=== PATIENT | female | born 1985 | race Caucasian/White ===

== ENCOUNTER 2017-07-23 03:01 | Inpatient (IN) | payer BC ==
[2017-07-23 03:52] LABS: APPEARANCE,URINE SLIGHTLY-CLOUDY; BILIRUBIN,URINE NEGATIVE (NEGATIVE); COLOR,URINE YELLOW; GLUCOSE, URINE NEGATIVE (NEGATIVE); KETONES,URINE NEGATIVE (NEGATIVE); LEUKOCYTE ESTERASE,URINE SMALL (NEGATIVE); NITRITE,URINE NEGATIVE (NEGATIVE); PROTEIN,URINE NEGATIVE (NEGATIVE); UROBILINOGEN,URINE NEGATIVE mg/dL (<2.0)
[2017-07-23 04:32] LABS: URINE AMPHETAMINES SCREEN NEGATIVE; URINE BARBITURATES SCREEN NEGATIVE; URINE BENZODIAZEPINES SCREEN NEGATIVE; URINE COCAINE SCREEN NEGATIVE; URINE MARIJUANA (THC) SCREEN NEGATIVE; URINE PHENCYCLIDINE SCREEN NEGATIVE
[2017-07-23] MEDS ORDERED: RINGERS SOLUTION,LACTATED 1,000 ML IV ONE (05:48)
[2017-07-23 06:20] LABS: ABSOLUTE BASOPHILS # (AUTO) 0.1 10^3/uL (0.0-0.2); ABSOLUTE EOSINOPHILS # (AUTO) 0.1 10^3/uL (0.0-0.6); ABSOLUTE LYMPHOCYTES (AUTO) 2.1 10^3/uL (0.5-4.7); ABSOLUTE MONOCYTES (AUTO) 0.8 10^3/uL (0.1-1.4); ABSOLUTE NEUT (AUTO) 12.1 10^3/uL (1.7-8.2); BASOPHILS % (AUTO) 0.8 % (0-2); EOSINOPHILS % (AUTO) 0.5 % (0-6); HEMATOCRIT 38.5 % (36.0-47.0); HEMOGLOBIN 13.2 g/dL (12.0-15.5); LYMPHOCYTES % (AUTO) 13.8 % (13-45); MEAN CORPUSCULAR HEMOGLOBIN 29.8 pg (27.0-33.4); MEAN CORPUSCULAR HGB CONC 34.4 g/dL (32.0-36.0); MEAN CORPUSCULAR VOLUME 87 fl (80-97); MONOCYTES % (AUTO) 5.1 % (3-13); PLATELET COUNT 252 10^3/uL (150-450); RED BLOOD COUNT 4.44 10^6/uL (3.72-5.28); RED CELL DISTRIBUTION WIDTH 13.7 % (11.5-14.0); SEGMENTED NEUTROPHILS % (AUTO) 79.8 % (42-78); TOTAL CELLS COUNTED % (AUTO) 100 %; WHITE BLOOD COUNT 15.2 10^3/uL (4.0-10.5)
--- NOTE | 2017-07-23 06:41 | Non Stress Test Report ---
Non Stress Test Datetime Report Generated by CPN: 07/23/2017 06:41 DEMOGRAPHIC EGA NST: 40.5 INDICATION Indication for Study: Other Indication for Study (NST) Other: labor check MONITORING Monitor Explained: Monitor Explained; Test Explained; Patient Verbalized Understanding Time on Monitor: 07/23/2017 03:25 Time off Monitor: 07/23/2017 04:26 NST Duration: 61 NST INTERVENTIONS NST Interventions: PO Hydration Physician Notified NST: [place] BABY A: [id number] BABY A Movement : Present Contraction Frequency : 3-4 FHR Baseline : 140 Accelerations : 15X15 Decelerations : None Variability : Moderate 6-25bpm NST Review: Meets Criteria for Reactive NST NST Review and Verified By : B Armijo, RN NST Results: Reactive NST REPORT Report Trigger: Send Report
[2017-07-23] MEDS: RINGERS SOLUTION,LACTATED 1,000 ML IV PRN ×3 (06:52→23:35)
--- NOTE | 2017-07-23 07:34 | L&D Progress Notes ---
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 Last outbreak was at the beginning of . She has not been on prophylaxis. Cvx 5-6/80/-1 to -2. Anticipate VAGINAL EXAM Dilatation: 6 Dilatation: 4 Effacement: 80 Effacement: 70 Station: -1 Station: -3 Contractions: q 2-4 MEMBRANES Membranes: Intact Amniotic Fluid Color: Clear FETUS A FHR - Baseline: 155 Monitoring: External US Variability: Moderate 6-25bpm Accelerations: 15X15 Decelerations: None FHR Category: Category I Presentation: Vertex SIGNATURE SIGNATURE: [id number];[id number] SIGNATURE: [id number] Signature: with User ID: [email or web address]
[2017-07-23] MEDS ORDERED: FENTANYL/BUPIVACAINE/NS/PF 200 MCG/100 ML RTUINJ EPI ONE (07:37)
[2017-07-23] MEDS ORDERED: OXYTOCIN/NORMAL SALINE 20 UNIT/1,000 ML RTUINJ ONE ×2 (07:37→12:01)
[2017-07-23] MEDS ORDERED: LIDOCAINE 1% INJ-PF (10 MG/ML) 30 ML SDV ONE (07:37)
[2017-07-23] MEDS ORDERED: MISOPROSTOL 0.2 MG TABLET ONE (07:37)
[2017-07-23] MEDS ORDERED: BUPIVACAINE HCL 0.25 % INJ/PF (2.5 MG/1 ML) 30 ML VIAL ONE (07:37)
[2017-07-23] MEDS ORDERED: EPHEDRINE SULFATE INJ 50 MG/1 ML AMPULE ONE (07:37)
--- NOTE | 2017-07-23 07:52 | L&D Progress Notes ---
PROGRESS NOTES Datetime Report Generated by CPN: 07/23/2017 07:52 PROGRESS NOTE Comment: No lesions or prodrome. SSE done at last exam. This is addendul to last note. FETUS C SIGNATURE: [id number];[id number] Signature: with User ID: [email or web address]
[2017-07-23] MEDS ORDERED: CEFAZOLIN 2 GM/D5W RTU 2 GM/50 ML RTUPB IV ONE (11:49)
[2017-07-23] MEDS ORDERED: CITRIC ACID/SODIUM CITRATE ORAL SOLN 15 ML UDCUP ONE (11:49)
[2017-07-23] MEDS ORDERED: AZITHROMYCIN INJ 500 MG VIAL IV ONE (11:49)
[2017-07-23] MEDS ORDERED: OXYTOCIN 10 UNIT/ML VIAL ONE (12:01)
[2017-07-23] MEDS ORDERED: MORPHINE SULFATE 10 MG/ML INJ ONE (12:01)
[2017-07-23] MEDS ORDERED: MIDAZOLAM 2 MG/2 ML INJ ONE (12:01)
[2017-07-23] MEDS ORDERED: SIMETHICONE 80 MG TAB.CHEW PO PRN (12:36)
[2017-07-23] MEDS ORDERED: MEASLES,MUMPS&RUBELLA VACC/PF 0.5 ML VIAL SUBCUT PRN (12:36)
[2017-07-23] MEDS ORDERED: PROMETHAZINE HCL INJ 25 MG/1 ML VIAL IV PRN (12:36)
[2017-07-23] MEDS ORDERED: DIPH/PERTUSS(ACELL)/TETANUS VAC/PF 0.5 ML SYR (>=10YO) IM PRN (12:36)
[2017-07-23] MEDS ORDERED: OXYTOCIN/NORMAL SALINE 20 UNIT/1,000 ML RTUINJ IV PRN (12:36)
[2017-07-23] MEDS ORDERED: ACETAMINOPHEN 325 MG TABLET PO PRN (12:36)
[2017-07-23] MEDS ORDERED: MORPHINE SULFATE 10 MG/ML INJ IM PRN (12:36)
[2017-07-23] MEDS ORDERED: IBUPROFEN 800 MG TABLET PO ONE (13:00)
[2017-07-23] MEDS ORDERED: ACETAMINOPHEN 100 ML IV PRN (13:04)
[2017-07-23] MEDS ORDERED: KETOROLAC TROMETHAMINE INJ/PF 30 MG/1 ML SDV ONE (13:07)
[2017-07-23] MEDS ORDERED: ACETAMINOPHEN 100 ML IV ONE (13:08)
[2017-07-23] MEDS ORDERED: DIPHENHYDRAMINE HCL 50 MG/ML VIAL ONE (13:08)
--- NOTE | 2017-07-23 13:08 | OPERATIVE REPORT E ---
Operative Report NAME: BERNARDINO NAVARRO : 1985 AGE: 31Y DATE OF SURGERY: 07/23/2017 ROOM: LR200 PREOPERATIVE DIAGNOSES: 1. IUP at term with nonreassuring tracing with decelerations. 2. Failure to descend. 3. Meconium-stained fluid. PROCEDURE: Primary low transverse , delivery of viable male 8 pounds 12 ounces, Apgars of 9 and 9. SURGEON: Wyatt BARRIENTOS M.D. TISSUE REMOVED OR ALTERED: Placenta. ESTIMATED BLOOD LOSS: 600 mL. ANESTHESIA: Epidural. DESCRIPTION OF PROCEDURE: The patient was placed in a supine position, rolled on her right side, prepped and draped in sterile fashion. Pfannenstiel incision was made. The incision extended through subcutaneous tissue and fascia with sharp dissection. Fascia sharply divided. Rectus muscle was bluntly and sharply divided. The parietal peritoneum was entered with sharp dissection. The uterus nicked in midline, extended bilaterally. was then delivered through the uterine abdominal incision. Nose and mouth suctioned with bulb syringe. The nuchal cord was reduced and the baby was passed from the table. Placenta was manually extracted. Uterus closed in 2 layers with first a running stitch of 0 Monocryl, a second Lembert stitch of 0 Vicryl, imbricating the first layer. Hemostasis was noted. Fascia closed with 0 Vicryl. The skin was closed with skin clips. All counts were correct. The patient was taken to recovery in good condition and the to nursery in good condition. DICTATING PHYSICIAN: Wyatt BARRIENTOS M.D. [id number] PHY#: [id number] ID: [id number] JOB#: [id number] ACCT: [id number] cc:Wyatt BARRIENTOS M.D. >
[2017-07-23] MEDS: KETOROLAC TROMETHAMINE INJ/PF 30 MG/1 ML SDV IV SCH ×2 (14:09→21:04)
--- NOTE | 2017-07-23 14:13 | Delivery Summary ---
Del Sum A-C Datetime Report Generated by CPN: 07/23/2017 14:13 DELIVERY PERSONNEL DELIVERY PERSONNEL: [id number] Delivery Doctor:: Varun Isaacs MD Anesthesiologist:: Nimesh Cortez MD END POLISHER:: [place] CRNA Labor and Delivery Nurse:: Amelia Simpson RN System Software Programmer:: Amelia Simpson RN Neonatal Nurse Practitioner:: MARTHA Estrella Nursery Nurse:: Deedee Berrios RN Cycle Repairer/SMALL APPLIANCE ASSEMBLY SUPERVISOR: America Devlin CST Cycle Repairer/SMALL APPLIANCE ASSEMBLY SUPERVISOR: ST Jany Additional Personnel: : Edelmira Harding RN MATERNAL INFORMATION Delivery Anesthesia: Epidural Medications After Delivery: Pitocin Bolus-Please Comment; Pitocin Drip 20 Units/1000ml NSS Estimated Blood Loss (ml): 500 Maternal Complications: None Provider Comments: meconium and nuchal cord x 1 LABOR SUMMARY EDC: 07/18/2017 00:00 No. Babies in Womb: 1 Attempted: No Labor Anesthesia: Epidural LABOR INFORMATION Reason for Induction: Not Applicable Onset of Labor: 07/23/2017 05:35 Complete Dilatation: 07/23/2017 10:24 Oxytocin: Augmentation Group B Beta Strep: negative Antibiotics # of Doses: 0 Steroids Given: None Reason Steroids Not Administered: Not Applicable MEMBRANES Membranes Rupture Method: Artificial Rupture of Membranes: 07/23/2017 10:24 Length of Rupture (hr): 2.75 Amniotic Fluid Color: Light Meconium Amniotic Fluid Amount: Moderate Amniotic Fluid Odor: Normal STAGES OF LABOR Stage 1 hr: 4 Stage 1 min: 49 Stage 2 hr: 2 Stage 2 min: 45 Stage 3 hr: -1 Stage 3 min: 0 Total Time in Labor hr: 6 Total Time in Labor min: 34 VAGINAL DELIVERY Episiotomy: None Laceration #1: None Laceration Extension #1: N/A Laceration Repair: Not Applicable Sponge Count Correct: N/A Sharps Count Correct: N/A CSECTION DELIVERY Primary Indication: Nonreassuring Status Secondary Indication: Arrest of Descent CSection Urgency: Emergency CSection Incidence: Primary Labor: Labor Elective: Nonelective CSection Incision: Lower Uterine Transverse Uterine Closure: Double-layer closure BABY A INFORMATION Delivery Date/Time: 07/23/2017 13:09 Method of Delivery: Born in Route : No : N/A Forceps: N/A Vacuum Extraction: Failed Shoulder Dystocia : No ASSISTED DELIVERY BABY A Indication for Assisted Delivery: Need for expedited delivery Catheter Prior to Procedure: Yes Station Vacuum/Forcep Apply: 0 Position Vacuum/Forcep Apply: Left Occipital Posterior Vacuum Number of Pulls: 4 Vacuum Number of PopOffs: 2 Vacuum Maximum Pressure Obtained: 550 Reduce Pressure btwn Ctx: Yes Vacuum Office Clerk: Ki[place] Total Time Vacuum Applied: 240 seconds PRESENTATION/POSITION BABY A Presentation: Cephalic Cephalic Presentation: Vertex Vertex Position: Left Occipital Posterior Breech Presentation: N/A PLACENTA INFORMATION BABY A Placenta Delivery Time : 07/23/2017 12:09 Placenta Method of Delivery: Manual Removal Placenta Status: Delivered SCORES BABY A Heart Rate 1 min: >100 bpm Resp Effort 1 min: Good Cry Reflex Irritability 1 min: Cough or Sneeze or Pulls Away Muscle Tone 1 min: Active Motion Color 1 min: Body [place], Extremities Blue Resuscitation Effort 1 min: Tactile Stimulation SCORE 1 MIN: 9 Heart Rate 5 min: >100 bpm Resp Effort 5 min: Good Cry Reflex Irritability 5 min: Cough or Sneeze or Pulls Away Muscle Tone 5 min: Active Motion Color 5 min: Body [place], Extremities Blue Resuscitation Effort 5 min: Tactile Stimulation SCORE 5 MIN: 9 INFORMATION BABY A Gestational Age at Delivery: 40.5 Gestational Status: Full Term- 39- 40.6 Weeks Infant Outcome : Liveborn Infant Condition : Stable Sex: Male IDENTIFICATION BABY A Verification Date/Time: 07/23/2017 12:15 ID Band Number: [id number] Mother's Name Verified: Yes RN Verifying : Mariana SIMPSON RN Additional Verifying Personnel: YIMI HARDING RN WEIGHT/LENGTH BABY A Birthweight (gm): 3975 Infant Weight (lb): 8 Infant Weight (oz): 12 Length (in): 21.25 Infant Length (cm): 53.98 CORD INFORMATION BABY A No. Cord Vessels: 3 Nuchal Cord : Around Neck x1, Loose Cord Blood Taken: Yes-For Storage (Mom's Blood type +) Infant Suction: None ASSESSMENT BABY A Complications: Multiple Late Decels Physical Findings at Delivery: Molding of the Head Physical Findings- Other: nuchal cord x1 Infant Respirations: Appears Normal Skin to Skin: Yes Hop Worker/ALS Called : No Care By: Sukumar Berrios RN Transferred To: [facility] BABY B INFORMATION : N/A SIGNATURES Signature: with User ID: [email or web address]
--- NOTE | 2017-07-23 14:32 | Admission Physical ---
Datetime Report Generated by CPN: 07/23/2017 14:32 CURRENT ADMISSION Chief Complaint: Uterine Contractions Indication for Induction: Not Applicable Indication for Induction: Term, Intrauterine ; Active Labor; Intact Membranes Admit Plan: Admit to Unit; Initiate Labor Protocol ALLERGIES Medication Allergies: Yes Medication Allergies: Sulfa (Sulfonamide Antibiotics) (07/23/2017); cefaclor (07/23/2017); amoxicillin (07/23/2017) Latex: No Latex Allergies Food Allergies: none Environmental Allergies: none OBSTETRICAL HISTORY EDC: 07/18/2017 00:00 : 2 Para: 0 Term: 0 : 0 SAB: 1 IAB: 0 Ectopic: 0 Livin Cesareans: 0 VBACs: 0 Multiple Births: 0 Gestational Diabetes: No Rh Sensitization: No Incompetent Cervix: No JEREMY: No Infertility: Yes ART Treatment: No Uterine Anomaly: No IUGR: No Hx Previous C/S: No Macrosomia: No Hx Loss/Stillborn: No PIH: No Hx : No Placenta Previa/Abruption: No Depression/PP Depression: No PTL/PROM: No Post Hemorrhage: No Current Procedures: Ultrasound; NST Obstetrical History Comments: G1 - SAB G2 - current SEE RECORDS Alcohol: No Marijuana : No Cocaine: No Other Illicit Drugs: No Cigarettes: Never Smoker. [id number] MEDICAL HISTORY Diabetes: No Blood Transfusion: No Pulmonary Disease (Asthma, TB): No Breast Disease: No Hypertension: No Material Movers Surgery: No Heart Disease: No Hosp/Surgery: Yes Autoimmune Disorder: No Anesthetic Complications: No Kidney Disease: No Abnormal Pap Smear: No Neuro/Epilepsy: No Psychiatric Disorders: No Other Medical Diseases: No Hepatitis/Liver Disease: No Significant Family History: No Varicosities/Phlebitis: No Trauma/Violence : No Thyroid Dysfunction: No Medical History Comments: adnoids and tonsillectomy, INFECTIOUS HISTORY Gonorrhea: No Genital Herpes: Yes Chlamydia: No Tuberculosis: No Syphilis: No Hepatitis: No HIV/AIDS Exposure: No Rash or Viral Illness: No HPV: No Infectious History Comments: unsure of last hsv outbreak (beginning of this ) PHYSICAL EXAM General: Normal HEENT: Normal Neurologic: Normal Thyroid: Deferred Heart: Normal Lungs: Normal Breast: Deferred Back: Normal Abdomen: Normal Genitourinary Exam: Normal Extremities: Normal DTRs: Normal Pelvic Type: Adequate Vital Signs: Reviewed VAGINAL EXAM Dilatation: 6 Dilatation: 4 Effacement: 80 Effacement: 70 Station: -1 Station: -3 Contraction Comments: q 2-4 MEMBRANES Membranes: Intact Amniotic Fluid Color: Clear FETUS A EGA: 40.5 Monitoring: External US FHR- Baseline: 155 Variability: Moderate 6-25bpm Accelerations: 15X15 Decelerations: None FHR Category: Category I Presentation: Vertex Admit Comment: 31yo at 40+5ega presents for regular uterine ctx. GBS negative. Hemoglobin D variant - FOB unknown Hemoglobin electrophoresis. 1hr GTT - 139. o/w uncomplicated. Admit to L_D for active labor. EFW 8-8.5#. Pelvis adequate for DICK. Anticipate . PLANS FOR LABOR AND DELIVERY Labor and Delivery: None Pain Management: Epidural Feeding Preference: Breast Benefit of Breast Feed Discussed: Yes Circumcision: Yes INFORMED CONSENT Informed Consent Obtained: Vaginal Delivery; Risks, Benefits and Alternatives Discussed Informed Consent Obtained: Vaginal Delivery; Risks, Benefits and Alternatives Discussed Signature: with User ID: [email or web address]
[2017-07-23] MEDS: OXYCODONE-ACETAMINOPHEN 5-325 MG TABLET PO PRN ×2 (16:47→21:05)
[2017-07-23] MEDS ORDERED: IBUPROFEN 800 MG TABLET PO SCH (18:00)
[2017-07-23] MEDS: DOCUSATE SODIUM 100 MG CAPSULE PO SCH (18:06)
[2017-07-24] MEDS: OXYCODONE-ACETAMINOPHEN 5-325 MG TABLET PO PRN (03:58)
[2017-07-24] MEDS: KETOROLAC TROMETHAMINE INJ/PF 30 MG/1 ML SDV IV SCH (06:09)
[2017-07-24 07:10] LABS: MEAN CORPUSCULAR HEMOGLOBIN 30.1 pg (27.0-33.4); MEAN CORPUSCULAR HGB CONC 34.4 g/dL (32.0-36.0); MEAN CORPUSCULAR VOLUME 88 fl (80-97); PLATELET COUNT 239 10^3/uL (150-450); RED BLOOD COUNT 3.77 10^6/uL (3.72-5.28); WHITE BLOOD COUNT 14.5 10^3/uL (4.0-10.5)
[2017-07-24 07:23] LABS: HEMOGLOBIN 11.4 g/dL (12.0-15.5)
[2017-07-24] MEDS: DOCUSATE SODIUM 100 MG CAPSULE PO SCH ×2 (11:14→17:10)
[2017-07-24] MEDS: IBUPROFEN 800 MG TABLET PO SCH ×2 (11:15→17:10)
[2017-07-24] MEDS: PRENATAL VITAMIN W DHA CAPSULE PO SCH (11:15)
--- NOTE | 2017-07-24 11:19 | PDOC PROGRESS REPORT ---
Subjective-OB Subjective: Post Delivery Day:1 31 year old G2 now P1 s/p primary ppd1. Ambulating, voiding and without difficulty. Denies any needs at this time Physical Exam (OB) Vital Signs: Temp Pulse Resp BP Pulse Ox 97.9 F 70 18 96/51 L 97 07/24/17 08:03 07/24/17 08:03 07/24/17 08:03 07/24/17 08:03 07/24/17 08:03 Intake & Output 07/23/17 07/24/17 07/25/17 06:59 06:59 06:59 Intake Total 1925 Output Total 3650 Balance -1725 Weight 194.7 kg - General General Appearance: Appears well In distress: None - PIH/Pre-Eclampsia DTR's: 2 + Clonus: Negative Headache: Absent Epigastric Pain: No Visual Changes: No - Dressing Removed: - medipore Incision: Dressing - Episiotomy/Laceration Site Condition: N/A - Lochia Lochia Amount: Small 10-25 ml Lochia Color: Rubra/Red - Abdomen Description: Soft Hernia Present: Yes Fundal Description: Firm, Midline Fundal Height: u/u - u/2 - Respiratory Respiratory Status: No respiratory distress - Neurological Cognition: Normal Orientation: AAOx4 - Psychological Associated symptoms: Normal affect, Normal mood Objective-Diagnostic Laboratory: 07/24/17 06:00 07/24/17 06:00 WBC 14.5 H RBC 3.77 Hgb 11.4 L Hct 33.0 L MCV 88 MCH 30.1 MCHC 34.4 RDW 14.0 Plt Count 239 Assessment and Plan(PN) - Assessment and Plan (1) Failed vacuum extraction, delivered, current hospitalization Is this a current diagnosis for this admission?: Yes Plan: delivered via primary (2) Status post primary low transverse section Is this a current diagnosis for this admission?: Yes Plan: routine pp care - Time Spent with Patient Time with patient: Less than 15 minutes Medications reviewed and adjusted accordingly: Yes - Disposition Anticipated Discharge: Home Within: within 24 hours
[2017-07-25] MEDS: IBUPROFEN 800 MG TABLET PO SCH ×4 (00:06→17:01)
[2017-07-25] MEDS: PRENATAL VITAMIN W DHA CAPSULE PO SCH (09:11)
[2017-07-25] MEDS: DOCUSATE SODIUM 100 MG CAPSULE PO SCH ×2 (09:12→17:01)
--- NOTE | 2017-07-25 10:55 | PDOC DISCHARGE SUMMARY ---
Final Diagnosis Discharge Date: 07/25/17 - Final Diagnosis (1) Failed vacuum extraction, delivered, current hospitalization Is this a current diagnosis for this admission?: Yes (2) Status post primary low transverse section Is this a current diagnosis for this admission?: Yes Discharge Data - Discharge Medication Prescriptions: Oxycodone HCl/Acetaminophen [Percocet 5-325 mg Tablet] 1 tab PO Q4HP PRN #30 tablet PRN Reason: Ibuprofen [Motrin 800 mg Tablet] 800 mg PO Q8 #90 tablet Home Medications: Pnv 102/Iron/Folate 1/Dss/Dha [Vitafol Fe+ Docusate Combo Pck] 1 each PO DAILY 07/23/17 Ibuprofen [Motrin 800 mg Tablet] 800 mg PO Q8 #90 tablet 07/25/17 Oxycodone HCl/Acetaminophen [Percocet 5-325 mg Tablet] 1 tab PO Q4HP PRN #30 tablet 07/25/17 Reason(s) for Admission: Ceasarean Section-Primary Intrapartum Procedure(s): : Low Cervical, Transverse - Diagnosis Test Laboratory: Temp Pulse Resp BP Pulse Ox 97.9 F 76 16 112/59 L 99 07/25/17 10:33 07/25/17 10:33 07/25/17 10:33 07/25/17 04:04 07/25/17 10:33 07/23/17 07/23/17 07/24/17 03:16 06:08 06:00 RBC 4.44 3.77 Hgb 13.2 11.4 L Hct 38.5 33.0 L Urine Opiates Screen NEGATIVE - Discharge information/Instructions Discharge Activity: Activity As Tolerated, Balance Activity w/Rest, No Lifting Over 10 Pounds, No Lifting/Push/Pulling, Pelvic Rest, No tub bath Discharge Diet: Regular Disposition: HOME, SELF-CARE Follow up with: [facility] in: 1
[2017-07-25 16:24] VITALS: BP 125/67
== END 2017-07-25 18:15 | disposition home or self-care (01) | DRG 765 ==
LOC: LC 03:01 → LR 05:48 → 2S 14:30
PROVIDERS: ADMIT Obstetrics & Gynecology Gynecology; ATTEND Obstetrics & Gynecology Gynecology
PROC: 10D00Z1 Extraction of Products of Conception, Low, Open Approach (ICD-10-PCS; principal; 2017-07-23)
PROC: 4A1HXCZ Monitoring of Products of Conception, Cardiac Rate, External Approach (ICD-10-PCS; 2017-07-23)
DX: O62.1 Secondary uterine inertia (principal); O98.32 Other infections with a predominantly sexual mode of transmission complicating childbirth; O76 Abnormality in fetal heart rate and rhythm complicating labor and delivery; O66.5 Attempted application of vacuum extractor and forceps; A60.00 Herpesviral infection of urogenital system, unspecified; O69.81X0 Labor and delivery complicated by cord around neck, without compression, not applicable or unspecified; O77.0 Labor and delivery complicated by meconium in amniotic fluid; Z3A.40 40 weeks gestation of pregnancy; Z37.0 Single live birth
CPT/HCPCS: 1961; 36415; 80307; 81005; 85025; 85027; 86592; 86850; 86900; 86901; 88307; 94760; 94799; J0131; J0456; J0690; J1200; J1885; J2250; J2270; J2590; J3490; J7120

== ENCOUNTER 2020-03-11 18:57 | Outpatient (CLI) | payer BC ==
[2020-03-11] MEDS ORDERED: RINGERS SOLUTION,LACTATED 1,000 ML IV PRN (19:21)
[2020-03-11 20:37] LABS: APPEARANCE,URINE CLOUDY; BILIRUBIN,URINE NEGATIVE (NEGATIVE); COLOR,URINE YELLOW; GLUCOSE, URINE 50 mg/dL (NEGATIVE); KETONES,URINE TRACE mg/dL (NEGATIVE); LEUKOCYTE ESTERASE,URINE LARGE (NEGATIVE); NITRITE,URINE NEGATIVE (NEGATIVE); PROTEIN,URINE NEGATIVE (NEGATIVE); URINE SPECIFIC GRAVITY 1.006; UROBILINOGEN,URINE NEGATIVE mg/dL (<2.0)
[2020-03-11 21:02] LABS: URINE AMPHETAMINES SCREEN NEGATIVE; URINE BARBITURATES SCREEN NEGATIVE; URINE BENZODIAZEPINES SCREEN NEGATIVE; URINE COCAINE SCREEN NEGATIVE; URINE MARIJUANA (THC) SCREEN NEGATIVE; URINE METHADONE SCREEN NEGATIVE; URINE PHENCYCLIDINE SCREEN NEGATIVE
--- NOTE | 2020-03-11 21:19 | Non Stress Test Report ---
Non Stress Test Datetime Report Generated by CPN: 03/11/2020 21:19 DEMOGRAPHIC EGA NST: 38.2 INDICATION Indication for Study (NST) Other: gestational age > 32 weeks VITAL SIGNS Temperature - NST: 98.7 Pulse - NST: 102 RESP - NST: 17 NBPSYS NST: 107 NBPDIA NST: 59 MONITORING Monitor Explained: Monitor Explained; Test Explained; Patient Verbalized Understanding Time on Monitor: 03/11/2020 19:38 Time off Monitor: 03/11/2020 20:30 NST Duration: 52 NST INTERVENTIONS NST Interventions: PO Hydration; Reposition Patient Physician Notified NST: dr bray BABY A: [id number] BABY A Movement : Present Contraction Frequency : irregular FHR Baseline : 135 Accelerations : Prolonged Decelerations : None Variability : Moderate 6-25bpm NST Review: Meets Criteria for Reactive NST NST Review and Verified By : Olinda Clark RN NST Results: Reactive NST REPORT Report Trigger: Send Report
--- NOTE | 2020-03-11 21:30 | RADIOLOGY REPORT (SQ) ---
EXAM DESCRIPTION: US LIMITED COMPLETED DATE/TME: 03/11/2020 00:00 CLINICAL HISTORY: 34 years, Female, Repeat MARIA ANTONIA COMPARISON: None. TECHNIQUE: Grayscale and Doppler sonogram of the pelvis. Transbadominal technique was performed. FINDINGS: The uterus contains a single fetus in the vertex orientation. Estimated gestational age 36 weeks three days by current ultrasound. Estimated date of delivery April 05, 2020. Estimated weight 2933 g. cardiac activity is measured at 136 bpm. Amniotic fluid index is 8 cm. Single deepest pocket 4 cm. IMPRESSION: Single live intrauterine with estimated gestational age of 36 weeks three days by current ultrasound. Amniotic fluid index 8 cm, single deepest pocket 4 cm.
== END 2020-03-11 21:41 | disposition home or self-care (01) ==
LOC: LC 18:57
PROVIDERS: ATTEND Obstetrics & Gynecology Gynecology
DX: Z34.93 Encounter for supervision of normal pregnancy, unspecified, third trimester (principal)
CPT/HCPCS: 59025; 76815; 80307; 81005

== ENCOUNTER 2020-03-16 11:59 | Outpatient (CLI) | payer BC ==
--- NOTE | 2020-03-16 12:36 | Non Stress Test Report ---
Non Stress Test Datetime Report Generated by CPN: 03/16/2020 12:36 DEMOGRAPHIC EGA NST: 39.0 VITAL SIGNS Temperature - NST: 98.7 Pulse - NST: 101 RESP - NST: 17 NBPSYS NST: 110 NBPDIA NST: 58 MONITORING Monitor Explained: Monitor Explained; Test Explained; Patient Verbalized Understanding Time on Monitor: 03/16/2020 12:11 Time off Monitor: 03/16/2020 12:32 NST Duration: 21 NST INTERVENTIONS NST Interventions: PO Hydration; Reposition Patient Physician Notified NST: Dr. Ohara BABY A: [id number] BABY A Movement : Present Contraction Frequency : 0 FHR Baseline : 125 Accelerations : 15X15 Decelerations : None Variability : Minimal - Undetectable to <=5bpm NST Review: Meets Criteria for Reactive NST NST Review and Verified By : BARRERA Trinidad NST Results: Reactive NST REPORT Report Trigger: Send Report
== END 2020-03-16 12:38 | disposition home or self-care (01) ==
LOC: LC 11:59
PROVIDERS: ATTEND Obstetrics & Gynecology
DX: O41.03X0 Oligohydramnios, third trimester, not applicable or unspecified (principal); O36.5930 Maternal care for other known or suspected poor fetal growth, third trimester, not applicable or unspecified; Z3A.39 39 weeks gestation of pregnancy; Z88.1 Allergy status to other antibiotic agents

== ENCOUNTER 2020-03-24 05:22 | Inpatient (IN) | payer BC ==
[2020-03-24] MEDS ORDERED: RINGERS SOLUTION,LACTATED 1,000 ML IV PRN ×2 (05:46→08:44)
[2020-03-24] MEDS ORDERED: RINGERS SOLUTION,LACTATED 1,000 ML IV ONE (05:46)
[2020-03-24 06:08] LABS: APPEARANCE,URINE SLIGHTLY-CLOUDY; BILIRUBIN,URINE NEGATIVE (NEGATIVE); COLOR,URINE STRAW; GLUCOSE, URINE NEGATIVE (NEGATIVE); KETONES,URINE NEGATIVE (NEGATIVE); LEUKOCYTE ESTERASE,URINE SMALL (NEGATIVE); NITRITE,URINE NEGATIVE (NEGATIVE); PROTEIN,URINE NEGATIVE (NEGATIVE); URINE SPECIFIC GRAVITY 1.003; UROBILINOGEN,URINE NEGATIVE mg/dL (<2.0)
[2020-03-24 06:18] LABS: URINE AMPHETAMINES SCREEN NEGATIVE; URINE BARBITURATES SCREEN NEGATIVE; URINE BENZODIAZEPINES SCREEN NEGATIVE; URINE COCAINE SCREEN NEGATIVE; URINE MARIJUANA (THC) SCREEN NEGATIVE; URINE METHADONE SCREEN NEGATIVE; URINE PHENCYCLIDINE SCREEN NEGATIVE
[2020-03-24 06:48] LABS: ABSOLUTE EOSINOPHILS # (AUTO) 0.1 10^3/uL (0.0-0.6); ABSOLUTE LYMPHOCYTES (AUTO) 1.8 10^3/uL (0.5-4.7); ABSOLUTE MONOCYTES (AUTO) 0.8 10^3/uL (0.1-1.4); ABSOLUTE NEUT (AUTO) 6.4 10^3/uL (1.7-8.2); BASOPHILS % (AUTO) 0.5 % (0-2); EOSINOPHILS % (AUTO) 1.1 % (0-6); HEMATOCRIT 36.8 % (36.0-47.0); HEMOGLOBIN 12.7 g/dL (12.0-15.5); LYMPHOCYTES % (AUTO) 19.5 % (13-45); MEAN CORPUSCULAR HGB CONC 34.5 g/dL (32.0-36.0); MEAN CORPUSCULAR VOLUME 87 fl (80-97); MONOCYTES % (AUTO) 8.5 % (3-13); PLATELET COUNT 228 10^3/uL (150-450); RED BLOOD COUNT 4.23 10^6/uL (3.72-5.28); RED CELL DISTRIBUTION WIDTH 13.7 % (11.5-14.0); SEGMENTED NEUTROPHILS % (AUTO) 70.4 % (42-78); TOTAL CELLS COUNTED % (AUTO) 100 %; WHITE BLOOD COUNT 9.1 10^3/uL (4.0-10.5)
[2020-03-24] MEDS ORDERED: OXYTOCIN/0.9 % SODIUM CHLORIDE 30 UNIT/500 ML RTUINJ ONE (07:05)
[2020-03-24] MEDS ORDERED: BUPIVACAINE HCL 0.25 % INJ/PF (2.5 MG/1 ML) 30 ML VIAL ONE (07:06)
[2020-03-24] MEDS ORDERED: CLINDAMYCIN 900 MG/D5W RTU 0 MG/0 ML RTUPB IV ONE (07:12)
[2020-03-24] MEDS ORDERED: CITRIC ACID/SODIUM CITRATE ORAL SOLN 15 ML UDCUP ONE ×2 (07:12→07:15)
[2020-03-24] MEDS ORDERED: CLINDAMYCIN 900 MG/D5W RTU 900 MG/50 ML RTUPB IV ONE (07:15)
--- NOTE | 2020-03-24 07:18 | Admission Physical ---
Datetime Report Generated by CPN: 03/24/2020 07:18 CURRENT ADMISSION Chief Complaint: Uterine Contractions; Suspected Ruptured Membranes Chief Complaint Other: at 40.1 wks ega with SROM at 03/23/2020 @ 0100 . She reports she thought at first it was her mucus plug so did not come in but contractions began very painful and now she came in . No vaginal bleeding Admit Impression : Term, Intrauterine ; Active Labor; Ruptured Membranes Admit Plan: Admit to Unit; Initiate Section Protocol ALLERGIES Medication Allergies: Yes Medication Allergies: Sulfa (Sulfonamide Antibiotics)/MO (03/24/2020); cefaclor/MO (03/24/2020); amoxicillin/MO (03/24/2020) Latex: No Latex Allergies Food Allergies: none Environmental Allergies: none OBSTETRICAL HISTORY EDC: 03/23/2020 00:00 : 4 Para: 1 Term: 1 : 0 SAB: 2 Livin Cesareans: 1 Gestational Diabetes: No Rh Sensitization: No Incompetent Cervix: No JEREMY: No Infertility: No ART Treatment: No Uterine Anomaly: No IUGR: No Hx Previous C/S: No Macrosomia: No Hx Loss/Stillborn: No PIH: No Hx : No Placenta Previa/Abruption: No Depression/PP Depression: No PTL/PROM: No Post Hemorrhage: No Current Procedures: Ultrasound; NST Obstetrical History Comments: G1- 2015 SAB G2- 2017 , non reassuring FHTs G3- 2018 SAB G4- current SEE RECORDS Alcohol: No Marijuana : No Cocaine: No Other Illicit Drugs: No (Annotations: Data stored by [facility] on behalf of user) Cigarettes: Never Smoker. 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: No Heart Disease: No Hosp/Surgery: Yes Autoimmune Disorder: No Anesthetic Complications: No Kidney Disease: No Abnormal Pap Smear: No Neuro/Epilepsy: No Psychiatric Disorders: No Other Medical Diseases: No Hepatitis/Liver Disease: No Significant Family History: No Varicosities/Phlebitis: No Trauma/Violence : No Thyroid Dysfunction: No Medical History Comments: , tonsilectomy and adenoidectomy in 1991 INFECTIOUS HISTORY Gonorrhea: No Genital Herpes: No Chlamydia: No Tuberculosis: No Syphilis: No Hepatitis: No HIV/AIDS Exposure: No Rash or Viral Illness: No HPV: No Infectious History Comments: HSV-1 PHYSICAL EXAM General: Normal HEENT: Normal Neurologic: Normal Thyroid: Normal Heart: Normal Lungs: Normal Breast: Normal Back: Normal Abdomen: Normal Genitourinary Exam: Normal Extremities: Normal DTRs: Normal Pelvic Type: Adequate Vital Signs: Reviewed VAGINAL EXAM Dilatation: 2 Effacement: 50 Station: -3 Contraction Comments: Contracions marlen 7 minutes MEMBRANES Membranes: Ruptured FETUS A EGA: 40.1 Monitoring: External US FHR- Baseline: 125 Variability: Moderate 6-25bpm Accelerations: 15X15 Decelerations: None FHR Category: Category I Presentation: Vertex Admit Comment: at 40.1 wks EGA with SROM clear fluid since 03/23/2020 at 0100 -Admit to LDR -NPO and IVFs -abdominal prep -ALlergy to sulfa drugs and cefaclor. She states hives to cefaclor. WIll give clindamycin 900g IV prior to OR -History of HSV with recent out break on valtrex -History of one prior CS, plan repeat CS PLANS FOR LABOR AND DELIVERY Labor and Delivery: None Pain Management: Epidural Feeding Preference: Breast Benefit of Breast Feed Discussed: Yes Circumcision: N/A INFORMED CONSENT Informed Consent Obtained: Section Delivery; Risks, Benefits and Alternatives Discussed Signature: with User ID: [email or web address] : with User ID: [email or web address]
[2020-03-24] MEDS ORDERED: ACETAMINOPHEN 1,000 MG/100 ML RTUPB IV PRN (08:44)
[2020-03-24] MEDS ORDERED: ACETAMINOPHEN 325 MG TABLET PO PRN (08:44)
[2020-03-24] MEDS ORDERED: OXYCODONE-ACETAMINOPHEN 5-325 MG TABLET PO PRN (08:44)
[2020-03-24] MEDS ORDERED: MEASLES,MUMPS&RUBELLA VACC/PF 0.5 ML VIAL SUBCUT PRN (08:44)
[2020-03-24] MEDS ORDERED: OXYTOCIN/0.9 % SODIUM CHLORIDE 30 UNIT/500 ML RTUINJ IV PRN (08:44)
[2020-03-24] MEDS ORDERED: DIPH/PERTUSS(ACELL)/TETANUS VAC/PF 0.5 ML SYR (>=10YO) IM PRN (08:44)
[2020-03-24] MEDS ORDERED: HYDROMORPHONE HCL INJ/PF 2 MG/ML AMPULE IV PRN (08:44)
[2020-03-24] MEDS ORDERED: PROMETHAZINE HCL INJ 25 MG/1 ML VIAL IV PRN (08:44)
[2020-03-24] MEDS ORDERED: SIMETHICONE 80 MG TAB.CHEW PO PRN (08:44)
--- NOTE | 2020-03-24 08:44 | Operative Report ---
Operative Report DATE OF SURGERY: 03/24/20 PREOPERATIVE DIAGNOSIS: Patient desires repeat POSTOPERATIVE DIAGNOSIS: Same OPERATION: Repeat via low transverse uterine incision SURGEON: HAILEY JORDAN ANESTHESIA: Spinal TISSUE REMOVED OR ALTERED: Placenta COMPLICATIONS: None ESTIMATED BLOOD LOSS: 400 cc INTRAOPERATIVE FINDINGS: Viable infant crying at delivery. Normal uterus tubes and ovaries PROCEDURE: Patient was taken to the OR and placed in supine position after her spinal anesthesia. She is prepared and draped in sterile fashion. Rollins was placed for drainage of the bladder. Low transverse incision was made and carried down the level of the fascia. The fascial incision was made with knife and extended bilaterally with curved Cool scissors. The fascia was off the rectus muscles using sharp and blunt dissection. The rectus muscles are in the midline. The peritoneum was entered without incident. Bladder blade was placed in uterine segment was identified. A low transverse incision was made creating a bladder flap. Bladder blade was placed low transverse uterine incision was made with the knife and extended with fingertips. The baby was delivered with some fundal pressure. Mouth and nose were suctioned free. The cord is doubly clamped and cut. Baby is passed off to the product steward in attendance. The placenta was manually extracted with trailing membranes. The uterus was externalized wrapped in a moist lap sponge. Uterine contents wiped free. Uterus was closed with a running locking layer of 0 chromic suture using the second layer to imbricate the first completing a double layer closure of the uterus. The serosa was closed with a running 2-0 chromic stitch. The pelvis was irrigated and suctioned free of fluid the uterus was replaced in the abdomen. The abdominal wall peritoneum was closed with running 2-0 chromic stitch. Fascia was closed with a running 0 Vicryl in 2 segments. Bri's layer was brought together with 0 plain gut stitch and the skin was closed with running subcuticular 4-0 undyed Vicryl stitch. The wound was dressed mother and baby did well.
[2020-03-24] MEDS ORDERED: DIPHENHYDRAMINE HCL 50 MG/ML VIAL ONE (09:02)
--- NOTE | 2020-03-24 10:01 | Delivery Summary ---
Del Sum A-C Datetime Report Generated by CPN: 03/24/2020 10:00 DELIVERY PERSONNEL DELIVERY PERSONNEL: [id number] Delivery Doctor:: Letitia Brice MD WARDROBE MISTRESS:: Sharee Keane WARDROBE MISTRESS Labor and Delivery Nurse:: America Devlin RN Shipmaster:: Holli Krishnan RN Neonatal Nurse Practitioner:: MARTHA Jiménez Nursery Nurse:: Mamie Echols RN Employee Wellness/Fitness Coordinator/PAINTER INTERIOR FINISH: Kayy Barnard CST Employee Wellness/Fitness Coordinator/PAINTER INTERIOR FINISH: Maria G Doshi CST Additional Personnel: : Cindy Biswas DICTAPHONE MECHANIC MATERNAL INFORMATION Delivery Anesthesia: Spinal Medications After Delivery: Pitocin 30 Units in 500ml NS/D5W; Pitocin Drip 20 Units/1000ml NSS Delivery QBL: 400 Maternal Complications: Premature Rupture of Membranes LABOR SUMMARY EDC: 03/23/2020 00:00 No. Babies in Womb: 1 Attempted: No Labor Anesthesia: None LABOR INFORMATION Reason for Induction: Not Applicable Other Ripening Agents: N/A Oxytocin: N/A Group B Beta Strep: Negative Antibiotics # of Doses: 1 Antibiotics Time of Last Dose: 03/24/2020 07:38 Name of Antibiotic Given: Clindamycin 900mg IV Steroids Given: None Reason Steroids Not Administered: Not Applicable MEMBRANES Membranes Rupture Method: Spontaneous Rupture of Membranes: 03/23/2020 01:00 Length of Rupture (hr): 31.08 Amniotic Fluid Color: Clear Amniotic Fluid Amount: Scant Amniotic Fluid Odor: Normal STAGES OF LABOR Stage 3 hr: 0 Stage 3 min: 1 VAGINAL DELIVERY Episiotomy: None Laceration #1: None Laceration Repair: Not Applicable Sponge Count Correct: N/A CSECTION DELIVERY Primary Indication: Active Genital Herpes Secondary Indication: Repeat Elective CSection Urgency: Non-Scheduled CSection Incidence: Repeat Labor: N/A Elective: Nonelective CSection Incision: Lower Uterine Transverse BABY A INFORMATION Infant Delivery Date/Time: 03/24/2020 08:05 Method of Delivery: Born in Route : No : N/A Forceps: N/A Vacuum Extraction: N/A Shoulder Dystocia : No PRESENTATION/POSITION BABY A Presentation: Cephalic Cephalic Presentation: Vertex Breech Presentation: N/A PLACENTA INFORMATION BABY A Placenta Delivery Time : 03/24/2020 08:06 Placenta Method of Delivery: Manual Removal Placenta Status: Delivered SCORES BABY A Heart Rate 1 min: >100 bpm Resp Effort 1 min: Good Cry Reflex Irritability 1 min: Cough or Sneeze or Pulls Away Muscle Tone 1 min: Active Motion Color 1 min: Body [place], Extremities Blue Resuscitation Effort 1 min: Tactile Stimulation SCORE 1 MIN: 9 Heart Rate 5 min: >100 bpm Resp Effort 5 min: Good Cry Reflex Irritability 5 min: Cough or Sneeze or Pulls Away Muscle Tone 5 min: Active Motion Color 5 min: Body [place], Extremities Blue Resuscitation Effort 5 min: N/A SCORE 5 MIN: 9 INFORMATION BABY A Gestational Age at Delivery: 40.1 Gestational Status: Full Term- 39- 40.6 Weeks Infant Outcome : Liveborn Condition : Stable Sex: Female IDENTIFICATION BABY A Infant Verification Date/Time: 03/24/2020 08:21 ID Band Number: [id number] Mother's Name Verified: Yes Infant RN Verifying : Messi Krishnan RN Additional Verifying Personnel: Odette Garcia RN WEIGHT/LENGTH BABY A Infant Birthweight (gm): 3505 Weight (lb): 7 Infant Weight (oz): 12 Length (in): 20.00 Infant Length (cm): 50.80 CORD INFORMATION BABY A No. Cord Vessels: 3 Nuchal Cord : N/A Cord Blood Taken: Yes-For Eval (Mom's Blood Type - or O+) Infant Suction: None ASSESSMENT BABY A Physical Findings at Delivery: Within Normal Limits Infant Respirations: Appears Normal Skin to Skin: Yes Skin to Skin Time (min): 5 Infant Care By: Debra Echols RN/Therese Salas, TUBE BALANCER Transferred To: [facility] BABY B INFORMATION : N/A
--- NOTE | 2020-03-24 10:01 | Birth Certificate Data ---
Cert Data Datetime Report Generated by CPN: 03/24/2020 10:00 CERTIFICATE DATA 47a. Care: Yes (03/11/2020 18:59:Glory Ford RN) 48a. Number of Prev Live Births: 1 (03/11/2020 18:59:Holli Krishnan RN) 48b. Now Livin (03/11/2020 18:59:Angeline Matthew RN) 48c. Live Births Now : 0 (03/11/2020 18:59:QS system process) RISK FACTORS IN THIS 49a. Diabetes: No (03/11/2020 18:59:Glory Ford RN) 49b. Hypertension: No (03/11/2020 18:59:Glory Ford RN) 49c. Previous Births: 0 (03/11/2020 18:59:Angeline Matthew RN) 49d. Stillborns: No (03/11/2020 18:59:Glory Ford RN) 49d. IUGR: No (03/11/2020 18:59:Glory Ford RN) 49e. Infertility Treatment: No (03/11/2020 18:59:Glory Ford RN) 49f. Previous Cesareans: 1 (03/11/2020 18:59:Glory Ford RN) Mother's Height 50b. Height Inches: 64 (03/24/2020 05:32:QS system process) Mother's Weight 51a. Pre- Weight (lbs): 153 (03/11/2020 18:59:João Paiz RN) 51b. Weight at Delivery (lbs): 185 (03/16/2020 12:19:QS system process) Infections Present/Treated 53a. Gonorrhea: No (03/11/2020 18:59:Glory Ford RN) Results this Hospital Visit : Negative (03/11/2020 18:59:João Paiz RN) 53b. Syphilis: No (03/11/2020 18:59:Glory Ford RN) 53c. Chlamydia: No (03/11/2020 18:59:Glory Ford RN) Results this Hospital Visit: Negative (03/11/2020 18:59:João Paiz RN) 53d. Hepatitis B: No (03/11/2020 18:59:Glory Ford RN) Results this Hospital Visit: Negative (03/11/2020 18:59:Glory Ford RN) 53e. Hepatitis C: Negative (03/11/2020 18:59:João Paiz RN) 53j. Test Result: Negative (03/11/2020 18:59:Glory Ford RN) Obstetric Procedures 54a, b, c. Obstetric Procedures: Ultrasound; NST (03/11/2020 18:59:Glory Ford RN) Onset of Labor 56a. PROM >12 Hrs: 31.08 (03/24/2020 06:33:QS system process) 57a. Induction of Labor: N/A (03/11/2020 18:59:Holli Krishnan RN) 57a. Induction of Labor: N/A (03/11/2020 18:59:Holli Krishnan RN) 57c. Non-Vertex Presentation A: Vertex (03/11/2020 18:59:Holli Krishnan RN) 57d. Steroids - Lung Mat: None (03/11/2020 18:59:Holli Krishnan RN) 57d. Steroids - Lung Mat: Not Applicable (03/11/2020 18:59:Holli Krishnan RN) 57e. Antibiotics During Labor: 03/24/2020 07:38 (03/11/2020 18:59:Holli Krishnan RN) 57g. Moderate/Heavy Meconium: Clear (03/24/2020 06:33:João Paiz RN) 57h. Intolerance of Labor: Active Genital Herpes (03/11/2020 18:59:Holli Krishnan RN) : Repeat Elective (03/11/2020 18:59:Holli Krishnan RN) 57i. Epidural/Spinal Anesthesia: None (03/11/2020 18:59:Holli Krishnan RN) Method of Delivery 58a. Forceps - Unsuccessful A: N/A (03/11/2020 18:59:Holli Krishnan RN) 58b. Vacuum - Unsuccessful A: N/A (03/11/2020 18:59:Holli Krishnan RN) 58c. Presentation at 58c. Presentation at - A : Vertex (03/11/2020 18:59:Holli Krishnan RN) 58c. Presentation at - A : N/A (03/11/2020 18:59:Holli Krishnan RN) 58c. Presentation at - A : Cephalic (03/11/2020 18:59:Holli Krishnan RN) Final Route and Method of Del 58d. Baby A Route/Delivery: (03/11/2020 18:59:Holli Krishnan RN) 58e. Trial of Labor Attempted: No (03/11/2020 18:59:Holli Krishnan RN) 58e. Trial of Labor Attempted A: N/A (03/11/2020 18:59:Holli Krishnan RN) 58e. Trial of Labor Attempted B: N/A (03/11/2020 18:59:Holli Krishnan RN) Maternal Morbidity 59b. 3rd or 4th Degree Lacs: None (03/11/2020 18:59:Holli Krishnan RN) 59b. 3rd or 4th Degree Lacs: N/A (03/11/2020 18:59:Holli Krishnan RN) Birthweight Baby A: 3505 (03/11/2020 18:59:Mamie Echols RN) 60a. Pounds : 7 (03/11/2020 18:59:QS system process) 60b. Ounces: 12 (03/11/2020 18:59:QS system process) 61. GA at Delivery Baby A: 40.1 (03/11/2020 18:59:Holli Krishnan RN) : Full Term- 39- 40.6 Weeks (03/11/2020 18:59:QS system process) 62a. 5 Minute Baby A: 9 (03/11/2020 18:59:QS system process)
[2020-03-24] MEDS ORDERED: MISOPROSTOL 0.2 MG TABLET PR ONE (10:12)
[2020-03-24] MEDS ORDERED: MISOPROSTOL 0.2 MG TABLET ONE (10:16)
[2020-03-24] MEDS: PRENATAL VITAMIN W DHA CAPSULE PO SCH (12:21)
[2020-03-24] MEDS: DOCUSATE SODIUM 100 MG CAPSULE PO SCH ×2 (12:21→18:31)
[2020-03-24] MEDS ORDERED: KETOROLAC TROMETHAMINE INJ/PF 30 MG/1 ML SDV ONE (12:23)
[2020-03-24] MEDS: IBUPROFEN 800 MG TABLET PO SCH ×3 (12:23→23:55)
[2020-03-24] MEDS ORDERED: KETOROLAC TROMETHAMINE INJ/PF 30 MG/1 ML SDV IV SCH (14:00)
[2020-03-24] MEDS: OXYCODONE-ACETAMINOPHEN 5-325 MG TABLET PO PRN (20:35)
[2020-03-25] MEDS: IBUPROFEN 800 MG TABLET PO SCH ×3 (05:47→17:28)
[2020-03-25 08:46] LABS: HEMATOCRIT 34.3 % (36.0-47.0); HEMOGLOBIN 11.9 g/dL (12.0-15.5); MEAN CORPUSCULAR HEMOGLOBIN 30.2 pg (27.0-33.4); MEAN CORPUSCULAR HGB CONC 34.8 g/dL (32.0-36.0); MEAN CORPUSCULAR VOLUME 87 fl (80-97); PLATELET COUNT 208 10^3/uL (150-450); RED BLOOD COUNT 3.95 10^6/uL (3.72-5.28); RED CELL DISTRIBUTION WIDTH 13.9 % (11.5-14.0); WHITE BLOOD COUNT 10.9 10^3/uL (4.0-10.5)
--- NOTE | 2020-03-25 09:54 | PDOC PROGRESS REPORT ---
Subjective-OB Progress Note for:: 03/25/20 Physical Exam (OB) Vital Signs: Temp Pulse Resp BP Pulse Ox 98.1 F 68 17 103/59 L 97 03/25/20 07:47 03/25/20 07:47 03/25/20 07:47 03/25/20 07:47 03/25/20 07:47 Intake & Output 03/24/20 03/25/20 03/26/20 06:59 06:59 06:59 Intake Total 2900 Output Total 2000 Balance 900 Weight 84 kg - PIH/Pre-Eclampsia DTR's: 2 + Clonus: Negative Headache: Absent Epigastric Pain: No Visual Changes: No - Dressing Removed: No Incision: Dressing - Maternal Morbidity 59. Maternal Morbidity (serious complications experinced by the mother associated with labor and delivery: None of the above - Lochia Lochia Amount: Scant < 10 ml Lochia Color: Rubra/Red - Abdomen Description: Soft, Round Hernia Present: No Bowel Sounds: Normoactive Flatus Presence: Absent Stool: No Fundal Description: Firm, Midline Fundal Height: u/u - u/2 Objective-Diagnostic Laboratory: 03/25/20 08:03 03/25/20 08:03 WBC 10.9 H RBC 3.95 Hgb 11.9 L Hct 34.3 L MCV 87 MCH 30.2 MCHC 34.8 RDW 13.9 Plt Count 208 Assessment and Plan(PN) - Time Spent with Patient Time with patient: Less than 15 minutes Medications reviewed and adjusted accordingly: Yes - Disposition Anticipated Discharge Disposition: Home, Self Care Anticipated Discharge Timeframe: within 36 hours
[2020-03-25] MEDS: DOCUSATE SODIUM 100 MG CAPSULE PO SCH ×2 (10:01→17:31)
[2020-03-25] MEDS: PRENATAL VITAMIN W DHA CAPSULE PO SCH (10:01)
[2020-03-25] MEDS: OXYCODONE-ACETAMINOPHEN 5-325 MG TABLET PO PRN ×2 (10:01→20:20)
[2020-03-26] MEDS: IBUPROFEN 800 MG TABLET PO SCH ×4 (05:48→17:24)
[2020-03-26] MEDS: PRENATAL VITAMIN W DHA CAPSULE PO SCH (12:03)
[2020-03-26] MEDS: DOCUSATE SODIUM 100 MG CAPSULE PO SCH ×2 (12:03→17:24)
--- NOTE | 2020-03-26 12:06 | PDOC DISCHARGE SUMMARY ---
Impression - Admit/DC Date/PCP Admission Date/Primary Care Provider: 03/24/20 06:08 HAILEY JORDAN MD Discharge Date: 03/26/20 - POD #2, pt doing well and desires to go home today. A+, , - Discharge Diagnosis (1) Normal course Is this a current diagnosis for this admission?: Yes (2) Delivery by elective caesarean section Is this a current diagnosis for this admission?: Yes (3) Maternal active herpes simplex virus (HSV), delivered, current hospitalization Is this a current diagnosis for this admission?: Yes (4) Is this a current diagnosis for this admission?: Yes (5) Status post primary low transverse section Is this a current diagnosis for this admission?: Yes - Additional Information Resuscitation Status: Full Code Discharge Diet: As Tolerated, Regular Discharge Activity: Activity As Tolerated, No Driving, No Lifting Over 10 Pounds, Pelvic Rest Referrals: HAILEY JORDAN MD [Primary Care Provider] - Prescriptions: Ibuprofen [Motrin 800 mg Tablet] 800 mg PO Q6 #60 tablet Oxycodone HCl/Acetaminophen [Percocet 5-325 mg Tablet] 1 tab PO Q4HP PRN #30 tablet PRN Reason: Pain Scale Of 4 Home Medications: Pnv 102/Iron/Folate 1/Dss/Dha [Vitafol Fe+ Docusate Combo Pck] 1 each PO DAILY 07/23/17 Valacyclovir HCl [Valtrex] 500 mg PO BID 03/19/20 Ibuprofen [Motrin 800 mg Tablet] 800 mg PO Q6 #60 tablet 03/26/20 Oxycodone HCl/Acetaminophen [Percocet 5-325 mg Tablet] 1 tab PO Q4HP PRN #30 tablet 03/26/20 HPI Reason(s) for Admission: Ceasarean Section-Primary Procedures: Ultrasound Intrapartum Procedure(s): : Low Cervical, Transverse Hospital Course 59. Maternal Morbidity (serious complications experinced by the mother associated with labor and delivery: None of the above Results Laboratory Results: WBC 10.9 10^3/uL (4.0-10.5) H 03/25/20 08:03 RBC 3.95 10^6/uL (3.72-5.28) 03/25/20 08:03 Hgb 11.9 g/dL (12.0-15.5) L 03/25/20 08:03 Hct 34.3 % (36.0-47.0) L 03/25/20 08:03 MCV 87 fl (80-97) 03/25/20 08:03 MCH 30.2 pg (27.0-33.4) 03/25/20 08:03 MCHC 34.8 g/dL (32.0-36.0) 03/25/20 08:03 RDW 13.9 % (11.5-14.0) 03/25/20 08:03 Plt Count 208 10^3/uL (150-450) 03/25/20 08:03 Lymph % (Auto) 19.5 % (13-45) 03/24/20 06:05 [place] % (Auto) 8.5 % (3-13) 03/24/20 06:05 Eos % (Auto) 1.1 % (0-6) 03/24/20 06:05 Baso % (Auto) 0.5 % (0-2) 03/24/20 06:05 Absolute Neuts (auto) 6.4 10^3/uL (1.7-8.2) 03/24/20 06:05 Absolute Lymphs (auto) 1.8 10^3/uL (0.5-4.7) 03/24/20 06:05 Absolute Monos (auto) 0.8 10^3/uL (0.1-1.4) 03/24/20 06:05 Absolute Eos (auto) 0.1 10^3/uL (0.0-0.6) 03/24/20 06:05 Absolute Basos (auto) 0.0 10^3/uL (0.0-0.2) 03/24/20 06:05 Seg Neutrophils % 70.4 % (42-78) 03/24/20 06:05 Urine Color STRAW 03/24/20 05:30 Urine Appearance SLIGHTLY-CLOUDY 03/24/20 05:30 Urine pH 7.0 (5.0-9.0) 03/24/20 05:30 Ur Specific [place] 1.003 03/24/20 05:30 Urine Protein NEGATIVE mg/dL (NEGATIVE) 03/24/20 05:30 Urine Glucose (UA) NEGATIVE mg/dL (NEGATIVE) 03/24/20 05:30 Urine Ketones NEGATIVE mg/dL (NEGATIVE) 03/24/20 05:30 Urine Blood MODERATE (NEGATIVE) H 03/24/20 05:30 Urine Nitrite NEGATIVE (NEGATIVE) 03/24/20 05:30 Urine Bilirubin NEGATIVE (NEGATIVE) 03/24/20 05:30 Urine Urobilinogen NEGATIVE mg/dL (<2.0) 03/24/20 05:30 Ur Leukocyte Esterase SMALL (NEGATIVE) H 03/24/20 05:30 Urine Ascorbic Acid NEGATIVE (NEGATIVE) 03/24/20 05:30 Membranes Rupture POSITIVE (NEGATIVE) H 03/24/20 05:40 Urine Opiates Screen NEGATIVE 03/24/20 05:30 Urine Methadone Screen NEGATIVE 03/24/20 05:30 Ur Barbiturates Screen NEGATIVE 03/24/20 05:30 Ur Phencyclidine Scrn NEGATIVE 03/24/20 05:30 Ur Amphetamines Screen NEGATIVE 03/24/20 05:30 U Benzodiazepines Scrn NEGATIVE 03/24/20 05:30 Urine Cocaine Screen NEGATIVE 03/24/20 05:30 U Marijuana (THC) Screen NEGATIVE 03/24/20 05:30 RPR NONREACTIVE (NONREACTIVE) 03/24/20 06:05 HSV I&II IgM Ab 1.26 RATIO (0.00-0.90) H 03/24/20 06:05 HSV II Specific Ab 7.01 index (0.00-0.90) H 03/24/20 06:05 Blood Type A POSITIVE 03/24/20 06:05 Antibody Screen NEGATIVE 03/24/20 06:05 Plan Plan of Treatment: d/c to home, f/up with [facility] in one week for incision check Time Spent: Less than 30 Minutes
[2020-03-26 12:10] VITALS: BP 112/77
== END 2020-03-26 18:24 | disposition home or self-care (01) | DRG 788 ==
LOC: LC 05:22 → LR 06:08 → 2S 10:57
PROVIDERS: ADMIT Obstetrics & Gynecology; ATTEND Obstetrics & Gynecology
PROC: 10D00Z1 Extraction of Products of Conception, Low, Open Approach (ICD-10-PCS; principal; 2020-03-24)
DX: O98.52 Other viral diseases complicating childbirth (principal); O42.92 Full-term premature rupture of membranes, unspecified as to length of time between rupture and onset of labor; B00.9 Herpesviral infection, unspecified; Z3A.40 40 weeks gestation of pregnancy; Z37.0 Single live birth; Z88.1 Allergy status to other antibiotic agents; Z88.2 Allergy status to sulfonamides
CPT/HCPCS: 1961; 36415; 64486; 76942; 80307; 81005; 84112; 85025; 85027; 86592; 86695; 86696; 86850; 86900; 86901; 94760; 94799; J1200; J1885; J2590; J3490; J7120